=== PATIENT | female | born 1990 | race Caucasian/White ===

== ENCOUNTER 2018-03-06 10:25 | Emergency (ER) | payer SELFPAY ==
--- NOTE | 2018-03-06 10:51 | ER Document Report ---
ED Respiratory Problem - General Chief Complaint: Shortness Of Breath Stated Complaint: DIFFICULTY BREATHING Time Seen by Provider: 03/06/18 10:36 Mode of Arrival: Ambulatory Information source: Patient Notes: Patient is a 27-year-old female who presents today stating the onset around 930 at work feeling acute shortness of breath with some chest discomfort. Patient states she has a history of asthma but was diagnosed at 20 years of age. She has no albuterol inhaler at home. She denies any recent runny nose, congestion , or cough. Patient states she has had a long history of palpitations that have never been evaluated and she states she did feel some palpitations today. She denies any calf pain, leg swelling, recent trips or travel, or family history of DVT/PE. Patient was provided 7.5 mg of albuterol, some Atrovent, and 125 mg of Solu-Medrol. She denies any shortness of breath at this time. Patient does states she has a history of anxiety but currently denies any suicidal homicidal ideations. She was told that she was having "a panic attack " by bystanders according to the patient. TRAVEL OUTSIDE OF THE [place] IN LAST 30 DAYS: No - HPI Patient complains to provider of: Other - See above Onset: Just prior to arrival Duration: Better, Gone now Initiating Event: Other - See above Quality of pain: Achy Severity: Mild Pain Level: Denies Context: Other - See above Short of Breath: Moderate Cough: Nonproductive Sputum amount: None Associated symptoms: Other - See above Similar symptoms previously: Yes Recently seen / treated by doctor: No - Related Data Allergies/Adverse Reactions: No Known Allergies Allergy (Unverified 03/06/18 10:49) Past Medical History - General Information source: Patient - Social History Smoking Status: Unknown if Ever Smoked Cigarette use (# per day): No Chew tobacco use (# tins/day): No Smoking Education Provided: No Frequency of alcohol use: None Family History: Reviewed & Not Pertinent Review of Systems - Review of Systems Constitutional: denies: Fever EENT: Nose congestion, Nose discharge. denies: Eye discharge Cardiovascular: denies: Edema Respiratory: Cough, Short of breath, Wheezing. denies: Hurts to breathe, Hemoptysis Gastrointestinal: denies: Vomiting Genitourinary: denies: Dysuria Musculoskeletal: denies: Leg swelling Skin: Other - no hives. denies: Rash Neurological/Psychological: Other - no slurred speech -: Yes All other systems reviewed and negative Physical Exam - Vital signs Vitals: Resp Pulse Ox 12 100 03/06/18 10:33 03/06/18 10:33 Notes: Reviewed vital signs and nursing note as charted by RN. CONSTITUTIONAL: Alert and oriented and responds appropriately to questions. Well -appearing; well-nourished HEAD: Normocephalic; atraumatic NECK: Supple without meningismus; non-tender; no cervical lymphadenopathy, no masses CARD: Regular rate and rhythm; no murmurs, symmetric distal pulses RESP: Normal chest excursion without splinting or tachypnea; breath sounds clear and equal bilaterally; no wheezes or rhonchi ABD/GI: Normal bowel sounds; non-distended; soft, non-tender BACK: The back appears normal and is non-tender to palpation EXT: Normal ROM in all joints; non-tender to palpation; no edema SKIN: Normal color for age and race; warm; dry; no acute lesions noted NEURO: Moves all extremities equally; Motor and sensory function intact PSYCH: The patient's mood and manner are appropriate. Grooming and personal hygiene are appropriate. Course - Re-evaluation Re-evalutation: 03/06/18 10:49 Given the above history, physical examination, with vital signs as recorded, I will obtain basic labs, TSH, d-dimer. EKG and chest x-ray has been ordered. I do believe that the patient has a low pretest probability for pulmonary embolism. If the d-dimer is unremarkable, I do not believe further evaluation is necessary. I will refill the patient's albuterol inhaler. Patient currently satting 100%. EKG shows a heart of 79, normal sinus rhythm, normal axis, poor R-wave progression, no obvious ST elevation or depression 03/06/18 11:16 Troponin is only slightly above the upper limit of normal. D-dimer is pending. Patient denies any pain at this time. 03/06/18 12:44 D-dimer is elevated. CTA has been ordered. If the patient's test is negative, patient will be taken to CT scan. Vital signs are currently stable. Liter fluid has been ordered. 03/06/18 13:35 Patient's test is positive, but they have just taken hold to and from CT scan. I have spoke to the applied technologist who states the patient signed a waiver stating that she did not need a test. Wavers in the applied technologist's hand currently. I have ordered a quantitative hCG. Urine drug screen is also recorded. 03/06/18 13:49 Discussing the possibility with the patient about , she now discloses to me that she had an by an MEDICAL INSURANCE VERIFIER in [place] 2 weeks ago. This would explain the positive test. 03/06/18 14:06 Patient CTA is unremarkable. Vital signs are stable. Repeat troponin is pending. 03/06/18 15:04 Quantitative hCG is consistent with a recent . Patient still denies any and all abdominal pain. Patient does admit to "partying hard recently". She understands the importance of not using any illegal drugs. Repeat troponin is pending. She denies any pain at this time. Vital signs are stable. 03/06/18 15:39 Repeat troponin as recorded. Vital signs are stable. Patient denies any pain at this time. No wheezing on repeat examination. - Vital Signs Vital signs: Temp Pulse Resp BP Pulse Ox 19 120/69 100 03/06/18 14:00 03/06/18 13:01 03/06/18 14:00 - Laboratory Result Diagrams: 03/06/18 10:23 03/06/18 10:23 Laboratory results interpreted by me: 03/06/18 03/06/18 03/06/18 10:23 10:23 10:23 WBC 3.2 L Hgb 11.7 L Hct 35.5 L RDW 15.7 H D-Dimer 2.03 H Sodium 145.5 H Potassium 3.5 L Chloride 109 H Beta HCG, Quant Urine HCG, Qual 03/06/18 03/06/18 10:23 11:45 WBC Hgb Hct RDW D-Dimer Sodium Potassium Chloride Beta HCG, Quant 123.83 H Urine HCG, Qual POSITIVE H Discharge - Discharge Clinical Impression: Chest discomfort, Shortness of breath, Drug abuse Condition: Good Disposition: HOME, SELF-CARE Additional Instructions: Come back immediately with any return of pain, change in location or quality of pain, fevers, worsening shortness of breath, calf pain or leg swelling, or any other acute problems. Please follow-up with your primary care physician as we have discussed. Please refrain from using any illegal drugs as we have discussed. Please take two puffs of the albuterol inhaler every 4 hours for the next 48 hours and every 6 hours as needed after that. Prescriptions: Albuterol Sulfate [Proair HFA Inhalation Aerosol 8.5 gm MDI] 2 puff IH Q4H PRN # 1 mdi PRN Reason:
[2018-03-06 10:56] LABS: ANION GAP 11 (5-19); BLOOD UREA NITROGEN 13 mg/dL (7-20); CALCIUM 9.5 mg/dL (8.4-10.2); CARBON DIOXIDE 26 mmol/L (22-30); CHLORIDE 109 mmol/L (98-107); GLUCOSE 110 mg/dL (75-110); POTASSIUM 3.5 mmol/L (3.6-5.0); SODIUM 145.5 mmol/L (137-145)
[2018-03-06 10:57] LABS: ABSOLUTE LYMPHOCYTES (AUTO) 1.2 10^3/uL (0.5-4.7); ABSOLUTE MONOCYTES (AUTO) 0.3 10^3/uL (0.1-1.4); ABSOLUTE NEUT (AUTO) 1.7 10^3/uL (1.7-8.2); BASOPHILS % (AUTO) 0.1 % (0-2); EOSINOPHILS % (AUTO) 1.5 % (0-6); HEMATOCRIT 35.5 % (36.0-47.0); HEMOGLOBIN 11.7 g/dL (12.0-15.5); LYMPHOCYTES % (AUTO) 35.8 % (13-45); MEAN CORPUSCULAR HEMOGLOBIN 28.3 pg (27.0-33.4); MEAN CORPUSCULAR VOLUME 86 fl (80-97); MONOCYTES % (AUTO) 9.7 % (3-13); PLATELET COUNT 373 10^3/uL (150-450); RED BLOOD COUNT 4.15 10^6/uL (3.72-5.28); RED CELL DISTRIBUTION WIDTH 15.7 % (11.5-14.0); SEGMENTED NEUTROPHILS % (AUTO) 52.9 % (42-78); TOTAL CELLS COUNTED % (AUTO) 100 %; WHITE BLOOD COUNT 3.2 10^3/uL (4.0-10.5)
--- NOTE | 2018-03-06 11:28 | RADIOLOGY REPORT (SQ) ---
EXAM DESCRIPTION: CHEST 2 VIEWS COMPLETED DATE/TIME: 03/06/2018 11:20 am REASON FOR STUDY: 8, cp and sob COMPARISON: None. EXAM PARAMETERS: NUMBER OF VIEWS: two views TECHNIQUE: Digital Frontal and Lateral radiographic views of the chest acquired. RADIATION DOSE: NA LIMITATIONS: none FINDINGS: LUNGS AND PLEURA: No opacities, masses or pneumothorax. No pleural effusion. MEDIASTINUM AND HILAR STRUCTURES: No masses or contour abnormalities. HEART AND VASCULAR STRUCTURES: Heart normal size. No evidence for failure. BONES: No acute findings. HARDWARE: None in the chest. OTHER: No other significant finding. IMPRESSION: NO ACUTE RADIOGRAPHIC FINDING IN THE CHEST. TECHNICAL DOCUMENTATION: JOB ID: [id number] [employer]- All Rights Reserved Reading location - IP/workstation name: [email or web address]
[2018-03-06 12:23] LABS: URINE BARBITURATES SCREEN NEGATIVE; URINE BENZODIAZEPINES SCREEN NEGATIVE; URINE COCAINE SCREEN NEGATIVE; URINE MARIJUANA (THC) SCREEN UNCONFIRMED POSITIVE; URINE METHADONE SCREEN NEGATIVE; URINE PHENCYCLIDINE SCREEN NEGATIVE
[2018-03-06] MEDS ORDERED: NORMAL SALINE 1000 ML 1,000 ML IV ONE (12:45)
--- NOTE | 2018-03-06 13:58 | RADIOLOGY REPORT (SQ) ---
EXAM DESCRIPTION: CTA CHEST COMPLETED DATE/TIME: 03/06/2018 1:47 pm REASON FOR STUDY: 8, cp with sob COMPARISON: None. TECHNIQUE: CT scan of the chest performed using helical scanning technique with dynamic intravenous contrast injection. Images reviewed with lung, soft tissue and bone windows. Reconstructed coronal and sagittal MPR images reviewed. Additional 3 dimensional post-processing performed to develop Maximal Intensity Projection images (MT P). All images stored on PACS. All CT scanners at this facility use dose modulation, iterative reconstruction, and/or weight based d osing when appropriate to reduce radiation dose to as low as reasonably achievable (ALARA). [facility]: Dose Right [facility]: CareDose [facility]: Dose Right [facility]: Teradose 4D [facility]: Guidance Software CONTRAST TYPE AND DOSE: contrast/concentration: Isovue 370.00 mg/ml; Total Contrast Delivered: 64.0 ml; Total Saline Delivered: 97.0 ml Contrast bolus optimized for the pulmonary arteries. Not diagnostic for the aorta. RENAL FUNCTION: BUN 13 creatinine 0.59. RADIATION DOSE: CT Rad equipment meets quality standard of care and radiation dose reduction techniq ues were employed. CTDIvol: 14.3 - 16.5 mGy. DLP: 578 mGy-cm. . LIMITATIONS: None. FINDINGS: LUNGS AND PLEURA: No masses, infiltrates, pneumothorax. No pleural effusions, calcificati ons. AORTA AND GREAT VESSELS: No aneurysm. Contrast bolus not optimized for the aorta. HEART: No pericardial effusion. No significant coronary artery calcifications. PULMONARY ARTERIES: No emboli visualized in the main pulmonary arteries or the segmental branches. HILAR AND MEDIASTINAL STRUCTURES: No identified masses or abnormal nodes. HARDWARE: None in the chest. UPPER ABDOMEN: No significant findings. Limited exam. THYROID AND OTHER SOFT TISSUES: No masses. No adenopathy. BONES: No acute or significant finding. 3D MIPS: Confirm above findings. OTHER: No other significant finding. IMPRESSION: NORMAL CTA OF THE CHEST. NO PULMONARY EMBOLI. COMMENT: Quality ID # [id number]: Final reports with documentation of one or more dose reduction techniques (e.g., Automated exposure control, adjustment of the mA and/or kV according to patient size, use of iterative reconstruction technique) TECHNICAL DOCUMENTATION: JOB ID: [id number] [employer]- All Rights Reserved Reading location - IP/workstation name: [email or web address]
[2018-03-06 15:38] VITALS: BP 120/69
--- NOTE | 2018-03-06 21:18 | EKG REPORT ---
SEVERITY:- NORMAL ECG - SINUS RHYTHM : Confirmed by: Gissell Mehta 06-Mar-2018 21:17:39
== END 2018-03-06 15:58 | disposition home or self-care (01) ==
LOC: ER 10:25
DX: R07.9 Chest pain, unspecified (principal); R06.02 Shortness of breath; F19.10 Other psychoactive substance abuse, uncomplicated; R09.81 Nasal congestion; R09.89 Other specified symptoms and signs involving the circulatory and respiratory systems; R00.2 Palpitations; J45.909 Unspecified asthma, uncomplicated
CPT/HCPCS: 93005; 99285; 96360; 36415; 84702; 84443; 85025; 81025; 80048; 84484; 80307; 85379; 71046; 71275; 93010; J7030